=== PATIENT | female | born 1970 | race Asian ===

== ENCOUNTER 2020-01-25 07:00 | Emergency (ER) | payer MEDICAID, OTHER ==
[~2020-01-25] VITALS: Ht 162.6 cm; Wt 72.6 kg
--- NOTE | 2020-01-25 07:00 | NUR ---
Patient BIB [id number] for c/o AMS, possible COVID and fever per EMS report. Patient nonverbal, but able to move both left and right extremities. Respiratory rate 24 BPM, no cough evidenced. All pulses palpable, cap refill <3 sec. Traces of emesis around patients mouth noted and in hair. Patient in bed at lowest position, sr upx2, call light within reach. Fall preacutions implemented per protocol.
[2020-01-25] MEDS ORDERED: ONDANSETRON 4 MG/2 ML VIAL IV ONE (07:30)
[2020-01-25] MEDS ORDERED: IV NORMAL SALINE 1000 ML BAG IV ONE (07:30)
[2020-01-25] MEDS ORDERED: LEVETIRACETAM IV 1,000 MG in IV DEXTROSE 5% 100 ML IV ONE (08:00)
[2020-01-25 08:01] LABS: *BILIRUBIN,URIN NEGATIVE (NEGATIVE); *CLARITY,URINE CLEAR (CLEAR); *COLOR,URINE YELLOW (YELLOW); *KETONES,URINE NEGATIVE (NEGATIVE); *UROBILINOGEN,URINE 0.2 E.U./dl (NORMAL); LEUKOCYTE ESTERASE ,URINE NEGATIVE (NEGATIVE); NITRITE, URINE NEGATIVE (NEGATIVE); UGLUCOSE 1+ (NEGATIVE)
[2020-01-25 08:02] LABS: BASOPHILS # (AUTO) 0.2 K/uL (0.0-8.0); BASOPHILS % (AUTO) 0.9 % (0.0-2.0); HEMOGLOBIN 12.8 g/dL (10.9-14.3); LYMPHOCYTES # (AUTO) 0.9 K/uL (20.0-40.0); LYMPHOCYTES % (AUTO) 5.1 % (20.5-51.5); MEAN CORPUSCULAR HEMOGLOBIN 28.9 uug (24.7-32.8); MEAN CORPUSCULAR HGB CONC 33 g/dL (32.3-35.6); MEAN CORPUSCULAR VOLUME 88.2 fL (75.5-95.3); MONOCYTES # (AUTO) 0.3 K/uL (2.0-10.0); MONOCYTES % (AUTO) 1.4 % (0.0-11.0); NEUTROPHILS # (AUTO) 16.9 K/uL (1.8-8.9); NEUTROPHILS % (AUTO) 92.6 % (38.5-71.5); PLATELET COUNT (AUTO) 316 K/uL (179-408); RED BLOOD CELL COUNT(AUTO) 4.42 MIL/uL (3.63-4.92); WHITE BLOOD COUNT (AUTO) 18.2 K/uL (3.8-11.8)
[2020-01-25] MEDS ORDERED: ONDANSETRON 4 MG/2 ML VIAL ONE (08:08)
[2020-01-25] MEDS ORDERED: LEVETIRACETAM 500 MG/5 ML VIAL IV ONE (08:08)
[2020-01-25 08:10] LABS: LIPASE 121 U/L (73-393)
[2020-01-25 08:13] LABS: *BLOOD, URINE TRACE (NEGATIVE); ETHANOL < 3 MG/DL (0-0)
--- NOTE | 2020-01-25 08:15 | NUR ---
THE [facility] BRE[facility] OF [facility] [place] , CALLED WITH ACCEPTING MD AND TRANSFER INFORMATION. DR SCHWARZ IS GOING TO BE [facility], NEUROLOGIST IS DR [email or web address] IS GOING TO BE TRANSFERED [facility] TO [facility] ICU, ROOM #[id number]. [facility] IS [address] CHAO TALKED TO DR SCHWARZ ABOUT PT's CASE.
[2020-01-25 08:18] LABS: *URINE HCG, QUAL NEGATIVE (NEGATIVE); BACTERIA,URINE FEW /HPF (NONE SEEN); RBC,URINE 0-3 /HPF (0-3); SQUAMOUS EPITHELIAL CELL,UR FEW /HPF (NONE SEEN); WBC,URINE 0-3 /HPF (0-3)
[2020-01-25 08:20] LABS: *AMPHETAMINE, URINE NEGATIVE (NEGATIVE); *BARBITURATE, URINE NEGATIVE (NEGATIVE); *CANNABINOID, URINE NEGATIVE (NEGATIVE); *COCCAINE, URINE NEGATIVE (NEGATIVE); *OPIATE, URINE NEGATIVE (NEGATIVE); *PHENCYCLIDINE SCREEN,URINE NEGATIVE (NEGATIVE)
--- NOTE | 2020-01-25 08:20 | NUR ---
TELEPHONE FOR REPORT IS : [phone] ext [phone].
--- NOTE | 2020-01-25 08:20 | NUR ---
Patient's at bedside accompanying patient.
[2020-01-25 08:23] LABS: THYROID STIMULATING HORMONE 0.425 mIU/mL (0.358-3.740)
[2020-01-25] MEDS ORDERED: NICARDIPINE IN NS 200 ML IV ONE ×2 (08:29→08:30)
[2020-01-25 08:38] VITALS: BP 162/136
[2020-01-25 08:39] LABS: CARBON DIOXIDE 24 mmol/L (21-32); CHLORIDE 98 mmol/L (98-107); CREATININE 0.9 mg/dL (0.6-1.3); GLUCOSE 297 mg/dL (74-106); POTASSIUM 3.9 mmol/L (3.5-5.1); UREA NITROGEN, BLOOD 12 mg/dL (7-18)
--- NOTE | 2020-01-25 08:42 | NUR ---
[facility] ETA 30 minutes
[2020-01-25 08:43] LABS: ALANINE AMINOTRANSFERASE 23 U/L (14-59); ALKALINE PHOSPHATASE 111 U/L (50-136); ASPARTATE AMINOTRANSFERASE 19 U/L (15-37); BILIRUBIN,DIRECT 0.1 mg/dL (0.0-0.2); BILIRUBIN,TOTAL 0.6 mg/dL (0.2-1.0); TOTAL PROTEIN, SERUM 7.8 g/dL (6.4-8.2)
--- NOTE | 2020-01-25 08:48 | NUR ---
Cardene IV titrated to 7.5mg
--- NOTE | 2020-01-25 08:57 | NUR ---
Cardene titrated to 10mg/hr
[2020-01-25 09:19] LABS: ABG BASE EXCESS -0.5 mmol/L; ABG HCO3 23.4 mmol/L; ABG PCO2 36.4 mmHg (35.0-45.0); ABG PH 7.426 (7.350-7.450); ABG PO2 115.6 mmHg (75.0-100.0); ABG SITE LEFT RADIAL; COHb 0.9 % (0.5-1.5); MetHb 0.2 % (0.0-1.5); O2Hb 97.3 % (94.0-97.0); VENT MODE Nasal Cannula
[2020-01-25 09:30] LABS: ACETAMINOPHEN < 2.0 ug/mL (10-30)
--- NOTE | 2020-01-25 09:38 | NUR ---
Report given to Juliette ALCANTAR, Patient transferred to [facility] icu bed 4850-7
== END 2020-01-25 09:45 | disposition short-term general hospital (02) ==
LOC: ER 07:00
DX: I62.9 Nontraumatic intracranial hemorrhage, unspecified (principal); I10 Essential (primary) hypertension; E11.9 Type 2 diabetes mellitus without complications; Z91.14 Patient's other noncompliance with medication regimen; Z20.828 Contact with and (suspected) exposure to other viral communicable diseases
CPT/HCPCS: 36415; 36600; 70450; 71045; 72125; 74176; 80048; 80076; 80307; 81000; 81001; 82140; 82550; 83605; 83690; 84443; 84484; 84702; 84703; 85025; 85730; 87040 ×2; 87077; 87086; 87400; 87635; 93005; 96361; 96365; 96374; 96375; 99291; G0480 ×2; G0481; J1953; J2405; J7060; 70030-TC; A4663; J7030